=== PATIENT | male | born 1940 | race Caucasian/White ===

== ENCOUNTER 2016-07-20 20:17 | Inpatient (IN) | payer MEDICARE, OTHER ==
--- NOTE | ~2016-07-20 | CN ---
Consultation Report [facility] [address] [place]. [address] NAME: TIFFANIE MARTINEZ : 42 STATUS : ADM Artemio PAT#: [id number] AGE: 76 ADM/REG DATE : 07/20/16 MR#: [id number] REPORT SERV DATE: 07/21/16 DICTATED BY: LILLIAN DIAL DATE: 07/21/16 REPORT STATUS : Draft TRANSCRIBED BY: JERRY DATE: 07/21/16 CARDIOLOGY CONSULTATION DATE OF CONSULTATION: INDICATION: Progressive dyspnea, weakness, syncope, underlying coronary disease. HISTORY OF PRESENT ILLNESS: The patient is a 76-year-old white male, who was recently hospitalized in June of this year with generalized weakness and dysuria. He was found to have elevated blood sugars with a hemoglobin A1c of 9.2, and he was started on insulin. He also was found to have Strep viridans urinary tract infection and treated with antibiotics. He went home. This past Saturday, while getting a prescription at [facility], he had a edy syncopal event. When he came to, he was nauseated and started vomiting. He has continued to have dyspnea with minimal effort. He presents with worsening dyspnea and weakness. He has had mild pedal edema. He has had no palpitations. He was diagnosed with influenza B and started on Tamiflu this past week. He had an echocardiogram performed in an outpatient setting, I do not have that data yet available to me. He has had no chest discomfort. CURRENT HOME MEDICATIONS: Amlodipine 5 a day, aspirin 81 a day, calcitriol 0.25 Saturday only, cholecalciferol 1000 per day, clopidogrel 75 at h.s., cyanocobalamin 1000 per day, finasteride 5 per day, glimepiride 1 mg b.i.d., hydralazine 25 b.i.d., metoprolol 50 b.i.d., nitroglycerin p.r.n., Tamiflu 75 mg twice a day, pioglitazone 30 mg at h.s., simvastatin 20 a day, and tocopherol 400 per day. ALLERGIES OR INTOLERANCES: Penicillin and sulfa containing antibiotics. SOCIAL HISTORY: Former smoker, quit greater than 30 years ago, but prior to that, had a 50- to 28-hzna-rhhf history. Negative for alcohol. Son is in attendance. FAMILY HISTORY: Mother had a history of dementia. Father with diabetes and coronary disease. He has one sibling with pulmonary disease of unknown type. PAST MEDICAL HISTORY AND REVIEW OF SYSTEMS: He has had prior PCIs. He has chronic kidney disease stage 3 with a baseline creatinine of 1.7 to 1.8. He has jys-ssmpdln-uyvkrtmeg type 2 diabetes mellitus, hypertension, hyperlipidemia, and GERD. He has had previous PCI and previous cystoscopy. He was last seen in the office on 04/20/2016. At that time, he had a mild cough and some left inframammary chest discomfort. PHYSICAL EXAMINATION: VITAL SIGNS: Blood pressure 113/55, pulse 70 and regular, respirations 18. SKIN: No xanthelasmas. HEENT: He is normocephalic. There is no pallor. Sclerae white. Consultation Report [place] [id number] [facility] [place]. [address] NAME: TIFFANIE MARTINEZ : 42 STATUS : ADM Artemio PAT#: [id number] AGE: 76 ADM/REG DATE : 07/20/16 MR#: [id number] REPORT SERV DATE: 07/21/16 DICTATED BY: LILLIAN DIAL DATE: 07/21/16 REPORT STATUS : Draft TRANSCRIBED BY: JERRY DATE: 07/21/16 NECK: JVD is not elevated. There is a loud right-sided carotid bruit and a soft left-sided carotid bruit. CHEST: There is good AP movement. There are sparse crackles at the bases bilaterally. CARDIAC: S1 normal, S2 physiologic. There is a 2/6 systolic ejection murmur, transferred to the base. ABDOMEN: Without tenderness. EXTREMITIES: With trace edema. NEUROLOGIC: No focal deficits. MUSCULOSKELETAL: No kyphosis. LABORATORY DATA: BUN 31, creatinine 1.82, glucose 248, magnesium 1.7 from 07/07. Albumin 2.5. Globulin 4.8. Troponin is less than 0.02. BNP 164. White count 3.4, hemoglobin 10.1, platelets 237,000. Urinalysis is cloudy with protein measured at 30 and 7 red cells and greater than 182 white cells with wbc clumps. ECG shows sinus rhythm, rate 69. No acute repolarization changes present. IMPRESSION: A 76-year-old white male with chronic kidney disease, diabetes, and syncope. Findings on exam raise possibility of carotid disease and aortic valve disease. He has known underlying coronary disease, although symptoms are not consistent with angina at this time. Further recommendations as his study results evolve. Note that his BNP was only in the 160 range, which is not indicative of significant heart failure given his underlying renal insufficiency. DW/MODL Lillian Dial M.D. / [id number] CC: Paola Enriquez MD [facility]
--- NOTE | ~2016-07-20 | OP ---
Record Of Operation [facility] [address] [place]. [address] NAME: TIFFANIE FOFANA : 42 STATUS : ADM IN [facility]#: [id number] AGE: 76 ADM/REG DATE : 07/22/16 MR#: [id number] REPORT SERV DATE: 07/25/16 DICTATED BY: TAE MORSE DATE: 07/24/16 REPORT STATUS : Draft TRANSCRIBED BY: MODTheresa DATE: 07/24/16 DATE OF PROCEDURE: 07/24/2016 PREOPERATIVE DIAGNOSES: 1. Bilateral hydronephrosis with renal insufficiency. 2. Urinary retention. POSTOPERATIVE DIAGNOSES: 1. Bilateral hydronephrosis with renal insufficiency. 2. Urinary retention. PROCEDURE PERFORMED: 1. Cystoscopy with bilateral retrograde pyelogram. 2. Suprapubic tube placement. ANESTHESIA: General. COMPLICATIONS: None. DRAINS: 16-Dominican Felipe catheter and suprapubic vesicostomy tube. ESTIMATED BLOOD LOSS: Minimal. FINDINGS: 1. Bilateral severe hydroureteronephrosis to the level of the bladder. 2. Severe trabeculation of the bladder. 3. No prostatic hypertrophy and no ureteral stricture. INDICATIONS: Mr. Fofana is a 76-year-old with several months of worsening nocturnal enuresis submitted for urinary tract infection, difficulty breathing. CT scan of the chest and abdomen showed a surprised finding of bilateral severe hydronephrosis. There is no stone. The bladder appeared thick walled and distended on CT. He describes a traumatic catheterization in the ER when he was admitted six weeks ago. His creatinine was 1.7. He was brought to the operating room for cystoscopy with bilateral retrograde pyelograms and suprapubic tube placement. Possible ureteral stricture was discussed preop and DVIU with ureteral catheter placement. It was discussed that the stricture was found. TECHNIQUE: He is on culture-specific Levaquin, was brought to the operating room, and general anesthesia was administered. The lower abdomen was prepped and draped in the lithotomy position. No meatal stenosis. 22-Dominican rigid cystoscope was advanced. He has no ureteral stricture. The prostate was nonobstructive. Bladder was severely trabeculated with copious sediment layering at the bladder base. Residual urine was in the order of 800 to 1000 mL. Bladder was drained and refilled. The ureteral orifices were orthotopic in position. The right may have had a slight ureterocele. On the right, I was able to pass a 5-Dominican open-ended catheter and right retrograde pyelogram was performed. There was severe right hydroureteronephrosis for the tortuous ureter. Upon removal of the Pollack catheter, Record Of Operation [facility] [address] [place]. [address] NAME: TIFFAINE FOFANA : 42 STATUS : ADM IN PAT#: [id number] AGE: 76 ADM/REG DATE : 07/22/16 MR#: [id number] REPORT SERV DATE: 07/25/16 DICTATED BY: TAE MORSE DATE: 07/24/16 REPORT STATUS : Draft TRANSCRIBED BY: JERRY DATE: 07/24/16 all contrast drained promptly into the bladder. Left retrograde pyelogram was performed in a similar fashion. There was severe left hydroureteronephrosis with no filling defect. Hydroureter extended to the ureterovesical junction. Upon removal of the Pollack catheter, contrast drained promptly. My impression is that of hydronephrosis secondary to retention or hypertrophy of the detrusor. Stab incision was made with Bovie two fingerbreadths below the pubic symphysis. A spinal needle was passed into the dome of the bladder under direct vision with a 70-degree lens. I placed a 16-Dominican Jac suprapubic introducer trocar and sheath into the dome of the bladder under cystoscopic guidance. The trocar was removed, a 16-Dominican Felipe catheter was placed. The balloon was inflated with 10 mL and secured at skin level with silk stitch. The cystoscope was removed. My plan is for one month of Felipe catheter drainage. We can stop his Spiriva and start Flomax if he is emptying well in one month and creatinine is normalized. Then, consider removing the SP tube. I suspect neurogenic bladder related to atony of the bladder and he will be SP tube dependent. He is clearly unable to perform self-cath. YOKO/JERRY Tae Morse M.D. / [id number] CC: Paola Andrade MD Christopher Thacker, MD
--- NOTE | ~2016-07-20 | PUL ---
[place] [id number] [facility] [place]. [address] NAME: TIFFANIE MARTINEZ : 42 STATUS : ADM IN PAT#: [id number] AGE: 76 ADM/REG DATE : 07/22/16 MR#: [id number] REPORT SERV DATE: 07/24/16 DICTATED BY: ORACIO MARINELLI IV DATE: 07/23/16 REPORT STATUS : Draft TRANSCRIBED BY: MODL DATE: 07/23/16 PULMONARY FUNCTION TEST OVERNIGHT OXIMETRY. Study was performed on room air. 4 hours and 22 minutes of data are available for review. The mean oxygen saturation was 97%. Lowest scored saturation was 84%, however, appeared to be secondary to motion artifact. The patient spent 18 seconds with oxygen saturations of less than 88%. There were periods of oxygen saturation variation of saw-tooth pattern that at times were clustered. IMPRESSION: No significant nocturnal hypoxemia on room air. There is a period of clustered oxygen saturation variation in saw-tooth pattern that would be consistent with obstructive sleep apnea. This would be mild based on a desaturation index of 6 per hour. I would suggest formal polysomnography if clinically indicated. GENA/JERRY Oracio Marinelli IV, M.D. / [id number] CC: Paola Enriquez MD
--- NOTE | ~2016-07-20 | CN ---
Consultation Report [facility] [address] [place]. [address] NAME: TIFFANIE FOFANA : 42 STATUS : ADM IN [facility]#: [id number] AGE: 76 ADM/REG DATE : 07/22/16 MR#: [id number] REPORT SERV DATE: 07/23/16 DICTATED BY: TAE MORSE DATE: 07/22/16 REPORT STATUS : Draft TRANSCRIBED BY: JERRY DATE: 07/22/16 DATE OF CONSULTATION: 07/22/2016 CHIEF COMPLAINT: Bilateral hydronephrosis. HISTORY OF PRESENT ILLNESS: Mr. Fofana is a 76-year-old who is admitted with UTI and shortness of breath. His past urologic history is significant for circumcision and cystoscopy apparently for obstructive symptoms and phimosis. This was with Dr. Jansen about three months ago. He had a urinary tract infection last month and presented to the [facility]. He describes a traumatic Felipe catheter placement in the emergency room. He had a catheter indwelling for several days. Since then, he has had worsened urinary stream and nighttime urinary incontinence. He takes Proscar for BPH symptoms. Given his shortness of breath, a CT of the chest was obtained. This showed possible pulmonary fibrosis and a surprise finding of bilateral hydronephrosis in the partially imaged kidneys. Renal ultrasound was performed showing bilateral severe hydronephrosis. PAST MEDICAL HISTORY: Coronary artery disease, hypertension, GERD, type 2 diabetes, ALLERGIES: PENICILLIN AND SULFA. HOME MEDICATIONS: Norvasc, aspirin, vitamin D, Plavix, Proscar, Amaryl, hydralazine, Lopressor, Actos, Tamiflu last week. SOCIAL HISTORY: Former smoker. Denies alcohol or illicit drugs. His son is at the bedside. FAMILY HISTORY: No family history of malignancies. REVIEW OF SYSTEMS: As per the admitting H and P. His Felipe has hematuria after a traumatic catheter. He is wearing a diaper here. PHYSICAL EXAMINATION: VITAL SIGNS: Temp 98.2, pulse 75, respirations 16, BP 120/60. GENERAL: Pleasant, nontoxic appearing 76-year-old, in no acute distress. EYES: Sclerae anicteric. LUNGS: Clear. HEART: Regular rhythm. CHEST: Clear anteriorly. ABDOMEN: Soft, protuberant. No palpable mass. No rebound or guarding. No right or left CVA tenderness. :The bladder is not distended. Phallus is circumcised. Normal-appearing meatus. No hernia. No hydrocele. RECTAL: Digital rectal exam not performed. Consultation Report [place] [id number] [place] [address] NAME: TIFFANIE FOFANA : 42 STATUS : ADM IN [facility]#: [id number] AGE: 76 ADM/REG DATE : 07/22/16 MR#: [id number] REPORT SERV DATE: 07/23/16 DICTATED BY: TAE MORSE DATE: 07/22/16 REPORT STATUS : Draft TRANSCRIBED BY: JERRY DATE: 07/22/16 LABS: Creatinine is 1.8 today. Recent urine culture grew Strep viridans. IMAGING: CT of the chest from admission was reviewed. There is clearly severe right hydronephrosis and moderate severe left hydronephrosis. Lower poles of the kidney, UPJ, and ureters are not imaged on the study. IMPRESSION: 1. Recurring urinary tract infections. 2. Bilateral hydronephrosis, right greater than left. PLAN: 1. Await urine culture and check PSA. 2. Noncontrast CT of the abdomen and pelvis has been ordered to rule out bilateral upper tract obstruction. It is strongly possible that there is a lower tract obstruction from BPH or stricture that is causing the hydronephrosis. 3. I will follow him while he is inpatient here and return his urologic care to Dr. Jansen after he is discharged. JC/JERRY Tae Morse M.D. / [id number] CC: Paola Enriquez ALLAN C. Christopher Thacker, MD
--- NOTE | ~2016-07-20 | DS ---
Discharge Summary [facility] [address] [facility] [place]. [address] NAME: TIFFANIE MARTINEZ : 42 STATUS : ADM IN [facility]#: [id number] AGE: 76 ADM/REG DATE : 07/22/16 MR#: [id number] REPORT SERV DATE: 07/26/16 DICTATED BY: MIA BRANTLEY DATE: 07/26/16 REPORT STATUS : Draft TRANSCRIBED BY: MODL DATE: 07/26/16 ADMISSION DATE: 07/22/2016 DISCHARGE DATE: 07/26/2016 DISCHARGE DIAGNOSIS: 1. Acute respiratory failure, recovered. 2. Emphysema. 3. Both hydronephrosis, probably from neurogenic bladder, status post suprapubic catheter after a cystoscope. 4. Chronic kidney disease and acute kidney injury, it is improved, back to his normal. 5. Recurrent urinary tract infection. HISTORY OF PRESENT ILLNESS: This is a 76-year-old male patient, who came to the hospital with shortness of breath and weakness. Please see the dictated H and P. HOSPITAL COURSE: He was admitted to the hospital with a finding of hypoxia and possible pulmonary fibrosis and both hydronephrosis. He was treated with maximized bronchodilator treatment and steroid. He had a consultation with a psychologist and had also an evaluation with pulmonary function test and nocturnal oximetry. Pulmonary function test did not show any obstruction, but it showed mild decreased DLCO. More likely has a touch of emphysema of the lung presentation rather than the idiopathic pulmonary fibrosis. Pulmonary has been following this patient, improved, and the patient does not require home oxygen. He was found to have both bilateral hydronephrosis with a history of recurrent UTI, and also he has been followed by a local urologist, Dr. Hayward in [place] for retention and urinary tract infection. Dr. Graves in this facility decided to do the cystoscope to see any obstruction. When he went in with a cystoscope, there were no strictures or obstructions. It was more related to neurogenic bladder. Therefore, the suprapubic catheter was inserted on this admission. Tolerating all this treatment very well. His kidney function has been improved, back to his normal. Overall had improvement significantly. Maximized inpatient benefit, will be discharged to home. The physical therapist evaluated this patient's physical strength, and it was thought to be safe to be discharged to home. DISCHARGE MEDICATIONS: 1. Norvasc 5 mg once at night. 2. Aspirin 81 mg once a day. 3. Calcitriol once a week. 4. Plavix 75 mg once at nighttime. 5. Vitamin B12, 1000 mcg once a day. 6. Proscar 5 mg once a day. 7. Zocor 20 mg once at nighttime. 8. Lopressor 50 mg twice a day. 9. Vitamin E once a day. 10.Hydralazine 25 mg twice a day. Discharge Summary [address] [address] NAME: TIFFANIE MARTINEZ : 42 STATUS : ADM IN PAT#: [id number] AGE: 76 ADM/REG DATE : 07/22/16 MR#: [id number] REPORT SERV DATE: 07/26/16 DICTATED BY: MIA BRANTLEY DATE: 07/26/16 REPORT STATUS : Draft TRANSCRIBED BY: JERRY DATE: 07/26/16 11.Flomax 0.4 mg once at nighttime. 12.Prednisone tapering dose for two more days. 13.Albuterol as needed. 14.Actos 30 mg once at bedtime. 15.Amaryl 1 mg twice a day. DISPOSITION: The patient is to be discharged to home in stable condition. DIET: Diabetic diet. TIME SPENT: More than 30 minutes. EKL/MODL Mia Brantley M.D. / [id number] CC: Paola Andrade MD
--- NOTE | ~2016-07-20 | CN ---
Consultation Report [place] [id number] [facility]. [address] NAME: JORI FOFANA : 42 STATUS : ADM IN [facility]#: [id number] AGE: 76 ADM/REG DATE : 07/22/16 MR#: [id number] REPORT SERV DATE: 07/23/16 DICTATED BY: ALEXANDRA DE SOUZA DATE: 07/22/16 REPORT STATUS : Draft TRANSCRIBED BY: JERRY DATE: 07/22/16 CONSULTATION REPORT DATE OF CONSULTATION: Dear Dr. Samson: Thank you for requesting my opinion regarding evaluation and management of Mr. Jori Fofana pulmonary fibrosis and COPD exacerbation. Mr. Fofana is a 76-year-old gentleman with a significant past medical history of tobacco abuse, COPD, chronic kidney disease, type 2 diabetes, hypertension hyperlipidemia, coronary artery disease, status post PCI, who presents with worsening shortness of breath which began 2 to 3 months ago. He describes it as mild to moderate in nature, well localized to the chest, nonradiating, with no significant alleviating, exacerbating factors. He was diagnosed with influenza B and was treated with Tamiflu. He has become very weak and reportedly had a syncopal episode on Saturday while picking up a prescription for Tamiflu at [facility]. He denies any known history of lung disease, but does have a 56 pack year smoking history. He currently denies any fevers, chills, night sweats, nausea, vomiting, diarrhea, or constipation. REVIEW OF SYSTEMS: Detailed 14-point review of systems was completed. Pertinent positives and negatives are listed above. PAST MEDICAL HISTORY: 1. Coronary artery disease with PCI. 2. Chronic kidney disease. 3. Non insulin-dependent diabetes. 4. Hypertension. 5. Hyperlipidemia. 6. GERD. PAST SURGICAL HISTORY: 1. PCI. 2. Cystoscopy. ALLERGIES: PENICILLIN AND SULFA. HOME MEDICATIONS: Reviewed and located in the paper chart. SOCIAL HISTORY: The patient is a former smoker, but quit greater than 30 years ago. He smoked 50- to 60-pack year. He denies any significant alcohol or illicit drug abuse. FAMILY HISTORY: 1. Coronary artery disease. 2. Dementia. Consultation Report [place] [id number] [facility] [place]. [address] NAME: JORI FOFANA : 42 STATUS : ADM IN PAT#: [id number] AGE: 76 ADM/REG DATE : 07/22/16 MR#: [id number] REPORT SERV DATE: 07/23/16 DICTATED BY: ALEXANDRA DE SOUZA DATE: 07/22/16 REPORT STATUS : Draft TRANSCRIBED BY: JERRY DATE: 07/22/16 PHYSICAL EXAMINATION: VITAL SIGNS: Afebrile, T current 97.6, pulse 76, respiratory rate 20, on room air 99%, blood pressure 107/55. GENERAL: No acute distress. Able to communicate in full paragraphs at a time. Weak, frail- appearing. HEENT: Normocephalic, atraumatic. Pupils are equal, round, and reactive to light and accommodation. Posterior oropharynx is clear. NECK: No JVD. No LAD. Trachea midline. CARDIOVASCULAR: Regular rate and rhythm. S1, S2 present. LUNGS: Clear to auscultation bilaterally. No crackles. ABDOMEN: Nontender. Nondistended. Soft. Positive bowel sounds. EXTREMITIES: No clubbing, cyanosis, or edema. SKIN: No new rashes, lesions, or ulcers. PSYCHIATRIC: Alert and oriented x3. Appropriate mood and affect. Appropriate insight and judgment. NEUROLOGIC: 4/5 strength in lower extremities. Cranial nerves II through XII intact. Gait not tested. DTRs not performed. LABORATORY DATA: White count of 11, hemoglobin of 10, platelet count of 281. Chemistries demonstrate a creatinine of 1.81, down from 2.47. PH of 7.45, PaCO2 of 25, PaO2 of 104. Positive leukocyte esterase. IMAGING: Chest CT on 07/21/2016 was personally reviewed by me. I agree with the following interpretation: 1. Coronary artery disease with mild cardiomegaly. 2. Mildly severe pulmonary fibrosis. 3. Marked bilateral hydronephrosis and gallstone. ASSESSMENT AND PLAN: Mr. Fofana is a pleasant 76-year-old gentleman with a significant past medical history of coronary artery disease and prior tobacco abuse, he presents to [facility] with worsening shortness of breath, weakness, syncope, and underlying coronary artery disease. The patient had a history of Viridans Streptococci urinary tract infection, was treated with antibiotics. He was also recently diagnosed with influenza B and started on Tamiflu. Now presents with workup that demonstrates significant bilateral hydronephrosis. At this point, the patient is currently on room air. He does have progressive dyspnea, and CT scan that demonstrates bilateral pulmonary fibrotic changes. A clinical radiographic presentation is most consistent with the followin. Acute exacerbation of chronic obstructive pulmonary disease. 2. Pulmonary fibrotic changes, likely idiopathic pulmonary fibrosis. At this point, I recommend the following to better delineate the underlying causes of his shortness of breath. Consultation Report [address] [facility] [address] NAME: JORI FOFANA : 42 STATUS : ADM IN PAT#: [id number] AGE: 76 ADM/REG DATE : 07/22/16 MR#: [id number] REPORT SERV DATE: 07/23/16 DICTATED BY: ALEXANDRA DE SOUZA DATE: 07/22/16 REPORT STATUS : Draft TRANSCRIBED BY: JERRY DATE: 07/22/16 1. Check an WILBERTO, ANCA, RF, ESR, and CRP. 2. Full pulmonary function test. 3. Levaquin 750 mg p.o. q.24. 4. Continue current bronchodilators and steroid therapy. 5. Further recommendations pending clinical response and full pulmonary function test. Thank you for allowing me to participate in Mr. Fofana care. INDY/JERRY Alexandra De Souza M.D. / [id number] CC: Paola Enriquez MD
--- NOTE | ~2016-07-20 | PUL ---
[place] [id number] [place]. [address] NAME: TIFFANIE MARTINEZ : 42 STATUS : ADM IN PAT#: [id number] AGE: 76 ADM/REG DATE : 07/22/16 MR#: [id number] REPORT SERV DATE: 07/24/16 DICTATED BY: ORACIO MARINELLI IV DATE: 07/23/16 REPORT STATUS : Draft TRANSCRIBED BY: MODL DATE: 07/23/16 PULMONARY FUNCTION TEST COMPLETE PULMONARY FUNCTION STUDY REASON FOR REQUEST: Dyspnea and syncope. SURGERY CONSULTANT COMMENTS: The patient's efforts were good. The best efforts appear to be reproducible. FINDINGS: Baseline spirometry demonstrates a low normal FVC with a normal FEV1 and a high normal FEV1/FVC ratio. Lung volumes as measured by plethysmography demonstrate a low normal total lung capacity, slow vital capacity, and residual volume to total lung capacity ratio. The diffusion capacity is low normal. IMPRESSION: 1. There is no evidence for an obstructive ventilatory defect. FEV1 is 2.87 L or 98% of predicted. 2. Low normal lung volumes. 3. Low normal diffusion capacity with a measured DLCO of 21.4 mL/mmHg per minute or 87% of predicted. NM/JERRY Oracio Marinelli IV, M.D. / [id number] CC: Paola Enriquez MD
--- NOTE | ~2016-07-20 | HP ---
History And Physical [id number] [facility] [place]. [address] NAME: TIFFANIE FOFANA : 42 STATUS : ADM Artemio PAT#: [id number] AGE: 76 ADM/REG DATE : 07/20/16 MR#: [id number] REPORT SERV DATE: 07/21/16 DICTATED BY: AMELIA BAUTISTA DATE: 07/20/16 REPORT STATUS : Draft TRANSCRIBED BY: MODTheresa DATE: 07/20/16 DATE OF ADMISSION: 07/20/2016 POINT OF ENTRY: [facility]. PRIMARY HIDES INSPECTOR: Dr. Ivan. PRIMARY CLINICAL SUPERVISOR: Dr. Foreman. CHIEF COMPLAINT: Shortness of breath and weakness. HISTORY OF PRESENT ILLNESS: Mr. Fofana is a 76-year-old gentleman with a history of coronary artery disease with prior PCI, chronic kidney stage III, baseline creatinine of approximately 1.7 to 1.8, swj-jlafsqt-jebtozvci diabetes mellitus type 2 as well as hypertension and hyperlipidemia, who presents to the emergency department today with multiple complaints including a few month history of progressive worsening dyspnea on exertion as well as weakness. The patient was admitted to our service in June for urinary tract infection and acute kidney injury. He was fluid resuscitated and treated with three days of IV Rocephin and discharged to home. The patient has been seen by his primary care physician, twice in the last week for reports of persistent shortness of breath, primarily dyspnea on exertion. Workup at that time noted that he was saturating well on room air. EKG was nonischemic. Chest x-ray was clear. BNP was only mildly elevated above baseline. He was diagnosed with influenza B and started on Tamiflu. An echocardiogram was ordered and done in clinic today, results of which are pending. Given his persistent worsening dyspnea on exertion and weakness, he was referred to the emergency department for further evaluation. The patient states that his symptoms with shortness of breath primarily began two to three months ago. It is primarily with exertion. Denies any shortness of breath at rest or any orthopnea or PND. Denies any lower extremity edema or chest pain. He does endorse some cough with occasional sputum production as well as wheezing. When he exerts himself shortness of breath, he does become very weak as well and actually reported a syncopal episode on Saturday of this week while picking up a prescription for Tamiflu at [facility]. He denies any known history of lung disease but does have approximately 56-year pack smoking history. Denies any recent fevers, night sweats, or chills. Initial evaluation in the emergency department notable for a chest x-ray that shows pulmonary fibrosis, otherwise, was unremarkable. ABG was unremarkable. He is saturating well on room air. He was noted to have recurrent urinary tract infection as well as recurrent acute kidney injury on chronic kidney disease, stage III, and the patient was subsequently admitted to the Hospitalist Service for further evaluation and management. REVIEW OF SYSTEMS: History And Physical [address] [address] NAME: TIFFANIE FOFANA : 42 STATUS : ADM Artemio PAT#: [id number] AGE: 76 ADM/REG DATE : 07/20/16 MR#: [id number] REPORT SERV DATE: 07/21/16 DICTATED BY: AMELIA BAUTISTA DATE: 07/20/16 REPORT STATUS : Draft TRANSCRIBED BY: JERRY DATE: 07/20/16 Comprehensive review of systems otherwise negative unless listed in history present illness. PREVIOUS MEDICAL HISTORY: 1. Coronary artery disease with prior PCI. 2. Chronic kidney disease, stage III, baseline creatinine of 1.7 to 1.8. 3. Tnx-hynrayw-gzdvesxyp diabetes mellitus type 2. 4. Hypertension. 5. Hyperlipidemia. 6. Gastroesophageal reflux disease. SURGICAL HISTORY: 1. PCI. 2. Cystoscopy. ALLERGIES: ARE TO PENICILLIN, CAUSES HIVES, WELL SULFA DRUGS. HOME MEDICATIONS: 1. Norvasc 5 mg at bedtime. 2. Aspirin 81 mg daily. 3. Calcitriol 0.25 mcg Wednesdays only. 4. Vitamin D3, 1000 units daily. 5. Plavix 75 mg daily. 6. Vitamin B12 of 1000 mcg daily. 7. Proscar 5 mg daily. 8. Amaryl 1 mg b.i.d. 9. Hydralazine 25 mg b.i.d. 10.Lopressor 50 mg b.i.d. 11.Nitroglycerin 0.4 mg sublingual p.r.n. 12.Tamiflu 75 mg b.i.d. 13.Actos 30 mg at bedtime. 14.Simvastatin 20 mg at bedtime. 15.Vitamin E 400 units daily. SOCIAL HISTORY: He is a former smoker, quit greater than 30 years ago but does have about a 50- to 15-bgqv-cxki smoking history. Denies any alcohol. Denies any illicits. FAMILY MEDICAL HISTORY: Mother of history of dementia. Father with diabetes and coronary artery disease. Siblings with some unknown type of lung disease. LABS AND IMAGIN. White count is 8.4, hemoglobin is 11.1, hematocrit 34.3, and platelet count is 290. 2. Sodium is 140, potassium 4.6, chloride 106, carbon dioxide 26, BUN 32, creatinine 2.47, glucose is 170, calcium is 8.8, protein 7.6, albumin is 2.8, bilirubin is 0.4, ALT 22, AST 30, and alkaline phosphatase is 58. 3. Urinalysis: Spec gravity of 1.012, cloudy with large leukocyte esterase, greater than 182 white blood cells per high-powered field with 7 red blood cells and rare bacteria. 4. ABG: PH is 7.49, pCO2 is 25, PO2 of 104, bicarb is 19, saturating 98% on room air. History And Physical [address] [address] NAME: TIFFANIE FOFANA : 42 STATUS : ADM Artemio PAT#: [id number] AGE: 76 ADM/REG DATE : 07/20/16 MR#: [id number] REPORT SERV DATE: 07/21/16 DICTATED BY: AMLEIA BAUTISTA DATE: 07/20/16 REPORT STATUS : Draft TRANSCRIBED BY: JERRY DATE: 07/20/16 5. Chest x-ray shows no acute cardiopulmonary abnormality but did show some very mild pulmonary fibrosis type changes as noted by Radiology. 6. EKG per my review shows normal sinus rhythm. No evidence of any acute ischemia or infarction. Heart rates in 69. PHYSICAL EXAMINATION: VITAL SIGNS: Temperature is 98.2 degrees Fahrenheit, pulse is 75, respirations 16, saturating 98% on room air, and blood pressure 120/60. GENERAL: The patient is awake, alert, in no acute distress. Resting comfortably in bed. He is a well-developed, well-nourished, elderly male. Son is at bedside. HEENT: Atraumatic and normocephalic. Moist mucous membranes. Pupils are equal, round, reactive to light and accommodation. Extraocular eye movements are intact. No scleral icterus. NECK: No jugular venous distention. No carotid bruits. CARDIAC: Regular rate and rhythm. No murmurs, rubs, or gallops. Normal S1, S2. LUNGS: He is very tachypneic and is visibly short of breath while speaking but is saturating well on room air. He does have some decreased breath sounds in the bases as well as some inspiratory mild wheezes versus rales in all lung carmen. ABDOMEN: Soft, nontender, nondistended. Good bowel sounds. No rebound, guarding, or rigidity. EXTREMITIES: Warm and perfused. No cyanosis, clubbing, or edema. SKIN: Warm and dry. PSYCH: Affect appropriate. NEURO: Alert and oriented x3. Cranial nerves 2 through 12 grossly intact. Speech is normal. Gait not assessed. ASSESSMENT: Mr. Fofana is a 76-year-old, gentleman, who presents with progressive worsening shortness of breath and dyspnea on exertion as well as weakness and found to have evidence of recurrent urinary tract infection as well as acute kidney injury on chronic kidney stage 3. PROBLEM LIST: 1. Recurrent urinary tract infection. 2. Acute kidney injury on chronic kidney stage 3. 3. Shortness of breath and dyspnea on exertion. 4. Dck-qjtbgvk-aqeetqqpj diabetes mellitus type 2. 5. History of coronary artery disease. 6. Syncope. PLAN: 1. Urinary tract infection. Follow up urine culture. We will place the patient back on IV antibiotics. 2. Acute kidney injury, on chronic kidney stage 3. Provide gentle IV fluid hydration. We will avoid nephrotoxic medications. Checking urine lytes as well as renal ultrasound. 3. Shortness of breath and dyspnea on exertion. Etiology is unclear at this time as he is saturating well on room air. Chest x-ray and ABG are largely unremarkable except for some mild pulmonary fibrosis. The patient does have an extensive smoking history, History And Physical [address] [address] NAME: TIFFANIE FOFANA : 42 STATUS : ADM Artemio PAT#: [id number] AGE: 76 ADM/REG DATE : 07/20/16 MR#: [id number] REPORT SERV DATE: 07/21/16 DICTATED BY: AMELIA BAUTISTA DATE: 07/20/16 REPORT STATUS : Draft TRANSCRIBED BY: MODL DATE: 07/20/16 maybe concerning for possibly some early onset emphysema or COPD. We will check a CT scan of the chest while here as well as overnight as well as exertional pulse oximetries. He has received echocardiogram already today at outside facility. We will follow results of those up, but we will check a BNP level here and if elevated, I think it is prudent to repeat an echocardiogram here. Given his wheezing on exam, I will empirically place the patient on some steroids, DuoNebs, as well as the above-mentioned antibiotics for possible acute bronchitis versus COPD exacerbation. 4. Dau-yzvigah-auadfkzqa diabetes mellitus type 2. Holding the patient's oral hypoglycemics. Place him on level 2 insulin sliding scale. 5. Syncope. Unclear etiology at this time. He denies any preceding chest pain. We will attempt to follow up outside facility echocardiogram. We will check a set of orthostatic vital signs as well as ambulatory O2 sats and a carotid arterial Doppler. 6. History of coronary artery disease with PCI. EKG is nonischemic. He denies any chest pain. We will check a set of cardiac enzymes. 7. DVT prophylaxis. Heparin subcu given his CKD. CODE STATUS: The patient wished to be full code. SUN/JERRY elia Bautista MD / [id number] CC: MD Hussein Can MD
[2016-07-20 15:14] LABS: BASOPHILS 0.2 %; BASOPHILS ABSOLUTE 0.02 10/3/uL (0.0-0.16); EOSINOPHILS 0.5 %; EOSINOPHILS ABSOLUTE 0.04 10/3/uL (0.0-0.53); ER CBC TAT 0 Hrs 07 Mins; IMMATURE GRANULOCYTES 0.1 %; LYMPHOCYTES ABSOLUTE 5.29 10/3/uL (0.67-4.30); MEAN CORPUS HGB CONC 32.4 g/dL (32.0-36.0); MEAN CORPUSCULAR HEMOGLOB 28.8 pg (26.0-34.0); MEAN CORPUSCULAR VOLUME 89.1 fL (80-100); MEAN PLATELET VOLUME 8.9 fL (9.2-13.0); MONOCYTES 6.3 %; MONOCYTES ABSOLUTE 0.53 10/3/uL (0.21-1.20); NEUTROPHILS 29.9 %; NEUTROPHILS ABSOLUTE 2.51 10/3/uL (2.02-8.40); PLATELET COUNT 290 10/3/uL (150-400); RBC DISTRIBUTION WIDTH 16.7 % (12.0-16.0); RED CELL COUNT 3.85 10/6/uL (4.7-6.1); WHITE BLOOD CELLS 8.4 10/3/uL (4.5-10.5)
[2016-07-20 15:15] LABS: HEMATOCRIT 34.3 % (40.0-51.0); HEMOGLOBIN 11.1 g/dL (13.6-17.8); IMMATURE GRANULOCYTES ABSOLUTE 0.01 10/3/uL (0.0-0.11); MANUAL DIFF NO %
[2016-07-20 15:30] LABS: A/G RATIO 0.6 (0.7-1.9); ALBUMIN 2.8 G/DL (3.5-5.0); ALKALINE PHOSPHATASE 58 U/L (45-117); BUN (BLOOD UREA NITROGEN) 32 MG/DL (6-23); CALCIUM, SERUM 8.8 MG/DL (8.5-10.4); CHLORIDE, SERUM 106 MMOL/L (96-112); CO2 (CARBON DIOXIDE) 26 MMOL/L (24-34); CREATININE 2.47 MG/DL (0.70-1.30); GFR AFRICAN AMERICAN 28 ML/MIN (>=60); GFR NON AFRICAN AMERICAN 25 ML/MIN (>=60); GLOBULIN 4.8 G/DL (2.5-4.1); GLUCOSE, SERUM 170 MG/DL (60-99); POTASSIUM, SERUM 4.6 MMOL/L (3.5-5.3); SGOT(AST) 30 U/L (5-40); SGPT(ALT) 22 U/L (5-65); SODIUM, SERUM 140 MMOL/L (135-148); TOTAL BILIRUBIN 0.4 MG/DL (0-1.2); TOTAL PROTEIN 7.6 G/DL (6.0-8.5)
[2016-07-20 15:48] LABS: BAND NEUTROPHILS 1 %; ER DIFF TAT 0 Hrs 41 Mins; LYMPHOCYTES 57 %; LYMPHOCYTES ABSOLUTE (CALC) 4.79 10/3/uL (0.67-4.30); MONOCYTES 6 %; NEUTROPHILS ABSOLUTE (CALC) 3.11 10/3/uL (2.02-8.40); PLATELET ESTIMATE ADQ (ADEQUATE); RBC MORPHOLOGY NORM (NORMAL); SEGMENTED NEUTROPHIL (0) 36 %; TOTAL NUCLEATED CELLS 100
[2016-07-20 19:23] LABS: BE (BASE EXCESS) -3.1 MEQ/L (0 +/- 2.5); CARBOXYHEMOGLOBIN 0.8 % (0-3); HCO3 (ACTUAL BICARBONATE) 18.9 MEQ/L (23-27); HEMOBLOGIN CONTENT 11.3 G/DL (14-18); INSTRUMENT SERIAL # 8087; METHEMOGLOBIN 0.3 % (0-3); PCO2 (CO2 TENSION) 25 MMHG (35-45); PO2 (O2 TENSION) 104 MMHG (79-93); pH 7.49 (7.37-7.43)
[2016-07-20 19:24] LABS: ALLENS TEST Pos; O2 CONTENT 15.6 VOL% (18-24); OPERATOR ID 17589; SAMPLE Arterial
[~2016-07-20 20:17] MED LIST: ACTOS30 PO; AMARYL1 MG PO; APRES25 PO; CYANO1000T PO; HALF81 PO; LOP50 PO; NITROSTAT0.4 MG SL; NORV5 PO; PLAVIX PO; PROSCAR5 PO; ROCALTROL 0.0.25 MCG PO; ROCALTROL0.25 MCG PO; VITAMIN B-121000 MC1 PO; VITAMIN D31000 UNIT PO; VITE PO; ZANTAC 150 PO; ZOCOR20 PO
[2016-07-20] MEDS ORDERED: TAMIFLU PO (20:19)
[2016-07-20 20:55] LABS: ASCORBIC ACID (UR NOT ORDER) NEG (NEG); BILIRUBIN, URINE NEGATIVE (NEG); KETONE, URINE NEGATIVE (NEG); LEUKOCYTE ESTERASE(NOT OR LARGE (NEG); NITRITE (URINE) NEG (NEG)
[2016-07-20 20:56] LABS: WBC (NOT ORDERED) (RFLEX) > 182 (0-5)
[2016-07-20 23:01] LABS: TROPONIN I <0.02 NG/ML (<0.05)
[2016-07-21 02:59] LABS: CREATININE, URINE 91.5 MG/DL
[2016-07-21 07:20] LABS: ALBUMIN 2.5 G/DL (3.5-5.0); BUN (BLOOD UREA NITROGEN) 31 MG/DL (6-23); CALCIUM, SERUM 7.8 MG/DL (8.5-10.4); CHLORIDE, SERUM 109 MMOL/L (96-112); CO2 (CARBON DIOXIDE) 20 MMOL/L (24-34); CREATININE 1.82 MG/DL (0.70-1.30); GFR AFRICAN AMERICAN 41 ML/MIN (>=60); GFR NON AFRICAN AMERICAN 36 ML/MIN (>=60); GLUCOSE, SERUM 248 MG/DL (60-99); PHOSPHORUS, SERUM 2.8 MG/DL (2.5-4.5); POTASSIUM, SERUM 4.3 MMOL/L (3.5-5.3); SODIUM, SERUM 140 MMOL/L (135-148)
[2016-07-21 07:26] LABS: BASOPHILS 0 %; EOSINOPHILS 0 %; HEMOGLOBIN 10.1 g/dL (13.6-17.8); LYMPHOCYTES 45.4 %; LYMPHOCYTES ABSOLUTE 1.54 10/3/uL (0.67-4.30); MEAN CORPUS HGB CONC 33.1 g/dL (32.0-36.0); MEAN CORPUSCULAR HEMOGLOB 28.8 pg (26.0-34.0); MEAN CORPUSCULAR VOLUME 86.9 fL (80-100); MEAN PLATELET VOLUME 9.3 fL (9.2-13.0); MONOCYTES 0.9 %; MONOCYTES ABSOLUTE 0.03 10/3/uL (0.21-1.20); NEUTROPHILS 53.7 %; NEUTROPHILS ABSOLUTE 1.82 10/3/uL (2.02-8.40); PLATELET COUNT 237 10/3/uL (150-400); RBC DISTRIBUTION WIDTH 16.9 % (12.0-16.0); RED CELL COUNT 3.51 10/6/uL (4.7-6.1)
[2016-07-21 07:30] LABS: HEMATOCRIT 30.5 % (40.0-51.0); MANUAL DIFF NO %; WHITE BLOOD CELLS 3.4 10/3/uL (4.5-10.5)
[2016-07-22 08:11] LABS: BASOPHILS 0.1 %; BASOPHILS ABSOLUTE 0.01 10/3/uL (0.0-0.16); EOSINOPHILS 0 %; HEMATOCRIT 31.2 % (40.0-51.0); HEMOGLOBIN 10.4 g/dL (13.6-17.8); IMMATURE GRANULOCYTES 0.3 %; IMMATURE GRANULOCYTES ABSOLUTE 0.03 10/3/uL (0.0-0.11); LYMPHOCYTES 18.9 %; LYMPHOCYTES ABSOLUTE 2.21 10/3/uL (0.67-4.30); MEAN CORPUS HGB CONC 33.3 g/dL (32.0-36.0); MEAN CORPUSCULAR HEMOGLOB 29.5 pg (26.0-34.0); MEAN CORPUSCULAR VOLUME 88.6 fL (80-100); MEAN PLATELET VOLUME 9.6 fL (9.2-13.0); MONOCYTES 6.5 %; MONOCYTES ABSOLUTE 0.76 10/3/uL (0.21-1.20); NEUTROPHILS 74.2 %; NEUTROPHILS ABSOLUTE 8.68 10/3/uL (2.02-8.40); PLATELET COUNT 281 10/3/uL (150-400); RED CELL COUNT 3.52 10/6/uL (4.7-6.1)
[2016-07-22 08:14] LABS: MANUAL DIFF NO %; WHITE BLOOD CELLS 11.7 10/3/uL (4.5-10.5)
[2016-07-22 08:20] LABS: ALBUMIN 2.5 G/DL (3.5-5.0); BUN (BLOOD UREA NITROGEN) 35 MG/DL (6-23); CALCIUM, SERUM 8.2 MG/DL (8.5-10.4); CHLORIDE, SERUM 111 MMOL/L (96-112); CO2 (CARBON DIOXIDE) 20 MMOL/L (24-34); CREATININE 1.81 MG/DL (0.70-1.30); GFR AFRICAN AMERICAN 41 ML/MIN (>=60); GFR NON AFRICAN AMERICAN 36 ML/MIN (>=60); GLUCOSE, SERUM 205 MG/DL (60-99); POTASSIUM, SERUM 3.9 MMOL/L (3.5-5.3); SODIUM, SERUM 142 MMOL/L (135-148)
[2016-07-23 07:25] LABS: BASOPHILS 0.1 %; BASOPHILS ABSOLUTE 0.01 10/3/uL (0.0-0.16); EOSINOPHILS 0 %; HEMATOCRIT 29.3 % (40.0-51.0); HEMOGLOBIN 9.7 g/dL (13.6-17.8); IMMATURE GRANULOCYTES 0.6 %; IMMATURE GRANULOCYTES ABSOLUTE 0.05 10/3/uL (0.0-0.11); LYMPHOCYTES 17.8 %; LYMPHOCYTES ABSOLUTE 1.39 10/3/uL (0.67-4.30); MEAN CORPUS HGB CONC 33.1 g/dL (32.0-36.0); MEAN CORPUSCULAR HEMOGLOB 29.3 pg (26.0-34.0); MEAN CORPUSCULAR VOLUME 88.5 fL (80-100); MEAN PLATELET VOLUME 9.1 fL (9.2-13.0); MONOCYTES 8.3 %; MONOCYTES ABSOLUTE 0.65 10/3/uL (0.21-1.20); NEUTROPHILS 73.2 %; NEUTROPHILS ABSOLUTE 5.69 10/3/uL (2.02-8.40); PLATELET COUNT 226 10/3/uL (150-400); RBC DISTRIBUTION WIDTH 17.2 % (12.0-16.0); RED CELL COUNT 3.31 10/6/uL (4.7-6.1); WHITE BLOOD CELLS 7.8 10/3/uL (4.5-10.5)
[2016-07-23 07:26] LABS: MANUAL DIFF NO %
[2016-07-23 07:40] LABS: ALBUMIN 2.5 G/DL (3.5-5.0); BUN (BLOOD UREA NITROGEN) 36 MG/DL (6-23); CHLORIDE, SERUM 111 MMOL/L (96-112); CO2 (CARBON DIOXIDE) 22 MMOL/L (24-34); CREATININE 1.89 MG/DL (0.70-1.30); GFR AFRICAN AMERICAN 39 ML/MIN (>=60); GFR NON AFRICAN AMERICAN 34 ML/MIN (>=60); GLUCOSE, SERUM 185 MG/DL (60-99); PHOSPHORUS, SERUM 2.3 MG/DL (2.5-4.5); POTASSIUM, SERUM 4.4 MMOL/L (3.5-5.3); PROSTATIC SPECIFIC AG 0.14 NG/ML (0.0-6.5); RHEUMATOID FACTOR QUANT 25 IU/ML (0-15); SODIUM, SERUM 142 MMOL/L (135-148)
[2016-07-23 07:41] LABS: C-REACTIVE PROTEIN < 2.9 MG/L (<8.0)
[2016-07-23 08:11] LABS: SED RATE 66 MM/HR (0-15)
[2016-07-23 10:34] LABS: ANA TITER <1:40 TITER
[2016-07-24 06:10] LABS: HEMOGLOBIN 9.7 g/dL (13.6-17.8)
[2016-07-24 06:22] LABS: ALBUMIN 2.3 G/DL (3.5-5.0); CHLORIDE, SERUM 111 MMOL/L (96-112); CO2 (CARBON DIOXIDE) 22 MMOL/L (24-34); GFR AFRICAN AMERICAN 45 ML/MIN (>=60); GFR NON AFRICAN AMERICAN 39 ML/MIN (>=60); PHOSPHORUS, SERUM 2.4 MG/DL (2.5-4.5); SODIUM, SERUM 144 MMOL/L (135-148)
[2016-07-24 06:23] LABS: BUN (BLOOD UREA NITROGEN) 31 MG/DL (6-23); GLUCOSE, SERUM 121 MG/DL (60-99)
[2016-07-25 06:50] LABS: CALCIUM, SERUM 8.2 MG/DL (8.5-10.4); CHLORIDE, SERUM 108 MMOL/L (96-112); CO2 (CARBON DIOXIDE) 24 MMOL/L (24-34); CREATININE 1.76 MG/DL (0.70-1.30); GFR AFRICAN AMERICAN 43 ML/MIN (>=60); GFR NON AFRICAN AMERICAN 37 ML/MIN (>=60); PHOSPHORUS, SERUM 3.1 MG/DL (2.5-4.5); POTASSIUM, SERUM 4.3 MMOL/L (3.5-5.3); SODIUM, SERUM 142 MMOL/L (135-148)
[2016-07-25 06:57] LABS: BUN (BLOOD UREA NITROGEN) 25 MG/DL (6-23); GLUCOSE, SERUM 156 MG/DL (60-99)
[2016-07-25 07:22] LABS: BASOPHILS 0 %; EOSINOPHILS 0.2 %; EOSINOPHILS ABSOLUTE 0.01 10/3/uL (0.0-0.53); HEMOGLOBIN 9.4 g/dL (13.6-17.8); IMMATURE GRANULOCYTES 0.6 %; IMMATURE GRANULOCYTES ABSOLUTE 0.03 10/3/uL (0.0-0.11); LYMPHOCYTES 21.4 %; LYMPHOCYTES ABSOLUTE 1.15 10/3/uL (0.67-4.30); MEAN CORPUSCULAR HEMOGLOB 28.5 pg (26.0-34.0); MEAN CORPUSCULAR VOLUME 90.9 fL (80-100); MONOCYTES 10.4 %; MONOCYTES ABSOLUTE 0.56 10/3/uL (0.21-1.20); NEUTROPHILS 67.4 %; NEUTROPHILS ABSOLUTE 3.63 10/3/uL (2.02-8.40); PLATELET COUNT 224 10/3/uL (150-400); RBC DISTRIBUTION WIDTH 18.1 % (12.0-16.0); WHITE BLOOD CELLS 5.4 10/3/uL (4.5-10.5)
[2016-07-25 07:34] LABS: MEAN CORPUS HGB CONC 31.3 g/dL (32.0-36.0)
[2016-07-25 07:35] LABS: MANUAL DIFF NO %
[2016-07-25 23:18] LABS: ANCA PATTERN CHG YES; MYELOPEROXIDASE ANTIBODY <0.2 AI (<1.0); PROTEINASE 3 ANTIBODY <0.2 AI (<1.0)
[2016-07-26] MEDS ORDERED: FLOMAX4 PO (09:40)
[2016-07-26] MEDS ORDERED: P10 PO (09:41)
[2016-07-26] MEDS ORDERED: OCEAN NAS (09:43)
[2016-07-26] MEDS ORDERED: PROVHFA INH (09:46)
== END 2016-07-26 14:08 | disposition home or self-care (01) | DRG 693 ==
LOC: ER 20:17 → CDU1 22:04 → 7NO 22:13
PROVIDERS: Emergency Medicine; Internal Medicine; Urology
PROC: 0T9B30Z Drainage of Bladder with Drainage Device, Percutaneous Approach (ICD-10-PCS; 2016-07-24)
PROC: BT141ZZ Fluoroscopy of Kidneys, Ureters and Bladder using Low Osmolar Contrast (ICD-10-PCS; principal; 2016-07-24 13:45)
DX: N13.39 Other hydronephrosis (principal); J96.01 Acute respiratory failure with hypoxia; N17.9 Acute kidney failure, unspecified; J44.1 Chronic obstructive pulmonary disease with (acute) exacerbation; N39.0 Urinary tract infection, site not specified; E11.22 Type 2 diabetes mellitus with diabetic chronic kidney disease; I12.9 Hypertensive chronic kidney disease with stage 1 through stage 4 chronic kidney disease, or unspecified chronic kidney disease; N18.3 Chronic kidney disease, stage 3 (moderate); N31.9 Neuromuscular dysfunction of bladder, unspecified; K21.9 Gastro-esophageal reflux disease without esophagitis; I25.10 Atherosclerotic heart disease of native coronary artery without angina pectoris; E78.5 Hyperlipidemia, unspecified; B95.4 Other streptococcus as the cause of diseases classified elsewhere; Z95.5 Presence of coronary angioplasty implant and graft; Z79.82 Long term (current) use of aspirin; Z87.891 Personal history of nicotine dependence; Z88.0 Allergy status to penicillin; Z88.2 Allergy status to sulfonamides
CPT/HCPCS: 36600; 71020; 71250; 74176; 74420; 76775; 80048; 80053; 80069; 81001; 82570; 82805; 82962; 83516; 83516-59; 83735; 83880; 83935; 84100; 84153; 84300; 84484; 85014; 85018; 85025; 85652; 86039; 86140; 86255; 86431; 87040; 87070; 87086; 87205; 93005; 93882; 94010; 94640; 94726; 94729; 94762; 96374; 97161-GP; 99285; A9270-GY; C1758; C8929; G8978-CH-GP; G8979-CH-GP; G8980-CH-GP; J1956; J2405; J2710; J2930; J3010; Q9957; Q9967

== ENCOUNTER 2016-08-09 19:34 | Emergency (ER) | payer MEDICARE, OTHER ==
[2016-08-09 19:02] LABS: ASCORBIC ACID (UR NOT ORDER) 20 (NEG); BILIRUBIN, URINE NEGATIVE (NEG); ER URINALYSIS TAT 0 Hrs 13 Mins; KETONE, URINE NEGATIVE (NEG); LEUKOCYTE ESTERASE(NOT OR LARGE (NEG); NITRITE (URINE) NEG (NEG)
[2016-08-09 19:03] LABS: WBC (NOT ORDERED) (RFLEX) > 182 (0-5)
[2016-08-09 19:34] LABS: BASOPHILS 0.5 %; BASOPHILS ABSOLUTE 0.03 10/3/uL (0.0-0.16); EOSINOPHILS 2.6 %; EOSINOPHILS ABSOLUTE 0.17 10/3/uL (0.0-0.53); ER CBC TAT 0 Hrs 07 Mins; HEMATOCRIT 36.4 % (40.0-51.0); LYMPHOCYTES ABSOLUTE 2.37 10/3/uL (0.67-4.30); MANUAL DIFF NO %; MEAN CORPUSCULAR HEMOGLOB 30.4 pg (26.0-34.0); MEAN CORPUSCULAR VOLUME 92.2 fL (80-100); MEAN PLATELET VOLUME 9.5 fL (9.2-13.0); MONOCYTES 9.9 %; MONOCYTES ABSOLUTE 0.65 10/3/uL (0.21-1.20); NEUTROPHILS ABSOLUTE 3.37 10/3/uL (2.02-8.40); PLATELET COUNT 208 10/3/uL (150-400); RBC DISTRIBUTION WIDTH 17.9 % (12.0-16.0); RED CELL COUNT 3.95 10/6/uL (4.7-6.1); WHITE BLOOD CELLS 6.6 10/3/uL (4.5-10.5)
[~2016-08-09 19:34] MED LIST changes: +FLOMAX4 PO; +OCEAN NAS; +P10 PO; +PROVHFA INH; +TAMIFLU PO
[2016-08-09 19:51] LABS: CALCIUM, SERUM 8.9 MG/DL (8.5-10.4); CHEST PAIN PROFILE TAT 0 Hrs 24 Mins; CHLORIDE, SERUM 103 MMOL/L (96-112); CO2 (CARBON DIOXIDE) 20 MMOL/L (24-34); CREATININE 2.22 MG/DL (0.70-1.30); GFR AFRICAN AMERICAN 32 ML/MIN (>=60); GFR NON AFRICAN AMERICAN 28 ML/MIN (>=60); GLUCOSE, SERUM 160 MG/DL (60-99); TROPONIN I <0.02 NG/ML (<0.05)
[2016-08-09 19:52] LABS: SODIUM, SERUM 132 MMOL/L (135-148)
[2016-08-09 19:53] LABS: BUN (BLOOD UREA NITROGEN) 42 MG/DL (6-23); INTERNATIONAL NORMAL RATI 1.1 UNITS (-); PARTIAL THROMBO TIME 32.1 SEC (22.5-37.2); POTASSIUM, SERUM 5.3 MMOL/L (3.5-5.3); PROTIME (NOT ORD) 14.5 SEC (12.0-14.5)
== END 2016-08-09 21:56 | disposition home or self-care (01) ==
LOC: ER 19:34
PROVIDERS: Emergency Medicine
DX: Z43.6 Encounter for attention to other artificial openings of urinary tract (principal); N39.0 Urinary tract infection, site not specified; I12.9 Hypertensive chronic kidney disease with stage 1 through stage 4 chronic kidney disease, or unspecified chronic kidney disease; E11.22 Type 2 diabetes mellitus with diabetic chronic kidney disease; N18.9 Chronic kidney disease, unspecified; K21.9 Gastro-esophageal reflux disease without esophagitis; Z87.891 Personal history of nicotine dependence; Z88.0 Allergy status to penicillin; Z88.2 Allergy status to sulfonamides; Z79.82 Long term (current) use of aspirin; Z79.899 Other long term (current) drug therapy
CPT/HCPCS: 71010; 80048; 81001; 83735; 83880; 84484; 85025; 85610; 85730; 87086; 99284; A9270-GY